=== PATIENT | male | born 1970 | race Caucasian/White ===

== ENCOUNTER 2018-05-20 11:59 | Inpatient (IN) | payer MEDICAID, OTHER ==
--- NOTE | 2018-05-20 12:03 | EDPHY ---
H & P Time Seen by Provider: 05/20/18 12:03 HPI/ROS: CHIEF COMPLAINT: Left ankle injury HISTORY OF PRESENT ILLNESS: Arrives by EMS, slipped on ice on the [employer] path injuring his left ankle. Pain immediately after the fall. No skin laceration. No weakness or numbness in the foot. No other injuries. Is feeling generally well before this happened. REVIEW OF SYSTEMS: Eye: no change in vision ENT: no sore throat Cardiac: no chest pain or syncope Pulmonary: no cough or SOB Abdomen: no vomiting, diarrhea, abdominal pain Musculoskeletal: no back pain Skin: no rash Neuro: no headache Constitutional: no fever : no urinary symptoms A comprehensive 10 point review of systems is otherwise negative aside from elements mentioned in the history of present illness. PAST MEDICAL HISTORY: Negative Social history: Nonsmoker General Appearance: Alert and conversant, cooperative. Eyes: No scleral icterus. ENT, Mouth: Normal mucous membranes. Respiratory: Normal respiratory effort, breath sounds equal, lungs are clear to auscultation. Cardiovascular: Regular rate and rhythm. Gastrointestinal: Abdomen is soft and non tender. Neurological: Alert, face symmetric, normal motor and sensory in extremities. Skin: Warm and dry, no rashes. No laceration on the left leg. Musculoskeletal: Swelling and tenderness left distal tib-fib. No foot tenderness. Normal motor sensory and dorsalis pedis pulse in the left foot. No spinal or clavicular or other extremity tenderness. Pelvis is stable. Psychiatric: Not agitated. Emergency Department course/MDM: 1240: X-rays reviewed with the patient. He has spiral tibia and fibula fracture, closed. Phone consultation with Orthopedics requested. Last had tortilla with butter and a piece of toast with butter and some water at 10:30 a.m. Procedure: Splint placement. A left long leg posterior Ortho Glass splint was applied. After application of the splint I returned and re-examined the patient. The splint was adequately immobilizing the joint and distal to the splint the patient's circulation and sensation was intact. 1310: discussed with Teo: splint, admit, NPO. OR later today. 1352: reviewed xrays in ED with Teo, CT ordered at his request. Constitutional: Initial Vital Signs Temperature (C) 36.3 C 05/20/18 12:02 Heart Rate 58 L 05/20/18 12:02 Respiratory Rate 18 05/20/18 12:02 Blood Pressure 131/87 H 05/20/18 12:02 O2 Sat (%) 93 05/20/18 12:02 O2 Delivery Mode Room Air Allergies/Adverse Reactions: No Known Allergies Allergy (Unverified 05/20/18 12:05) Home Medications: Medication Instructions Recorded Multivitamins [Multivitamin (*)] 1 each PO DAILY 05/20/18 diphenhydrAMINE [Benadryl 25 MG 25 mg PO DAILY PRN 05/20/18 (*)] Medical Decision Making - Diagnostics Imaging Results: Imaging Impressions Ankle X-Ray 05/20/18 12:03 Impression: Complex spiral fractures of the distal tibia and fibula, as above- detailed. Imaging: I viewed and interpreted images myself - Data Points Medications Given: Discontinued Medications Sodium Chloride (Ns) 1,000 mls @ 0 mls/hr IV EDNOW ONE; Wide Open PRN Reason: Protocol Stop: 05/20/18 13:12 Last Admin: 05/20/18 13:15 Dose: 1,000 mls Ondansetron HCl (Zofran) 4 mg IVP EDNOW ONE Stop: 05/20/18 12:13 Last Admin: 05/20/18 12:18 Dose: 4 mg Departure - Departure Disposition: [facility] In[facility] Acute Clinical Impression: Tibia/fibula fracture, shaft Qualifiers: Encounter type: initial encounter Fracture type: closed Laterality: left Qualified Code(s): S82.202A - Unspecified fracture of shaft of left tibia, initial encounter for closed fracture Fracture, fibula closed, shaft Qualifiers: Encounter type: initial encounter Fracture morphology: spiral Fracture alignment: displaced Laterality: left Qualified Code(s): S82.442A - Displaced spiral fracture of shaft of left fibula, initial encounter for closed fracture Condition: Good
[2018-05-20] MEDS ORDERED: ONDANSETRON 4 MG/2 ML VIAL IVP ONE (12:12)
[2018-05-20] MEDS ORDERED: NS 1,000 ML IV ONE (13:11)
[2018-05-20] MEDS ORDERED: LR 1,000 ML IV ONE (16:00)
[2018-05-20] MEDS ORDERED: BUPIVACAINE 0.5% 30 ML SDV ONE (16:16)
[2018-05-20] MEDS ORDERED: ceFAZolin 2 GM/DEXTROSE 100 ML IV ONE (16:24)
--- NOTE | 2018-05-20 16:31 | PDANEPAE ---
ANE Past Medical History - Cardiovascular History Hx Hypertension: No Hx Arrhythmias: No Hx Chest Pain: No Hx Coronary Artery / Peripheral Vascular Disease: No Hx CHF / Valvular Disease: No Hx Palpitations: No - Pulmonary History Hx COPD: No Hx Asthma/Reactive Airway Disease: No Hx Oxygen in Use at Home: No - Endocrine History Hx Diabetes: No - Renal History Hx Renal Disorders: No - Liver History Hx Hepatic Disorders: No ANE Review of Systems Review of systems is: negative Review of Systems: - Exercise capacity Exercise capacity: >=4 METS ANE Patient History - Allergies Allergies/Adverse Reactions: No Known Allergies Allergy (Unverified 05/20/18 12:05) - Home Medications Home medications: home medication list seen and reviewed Home Medications: Multivitamins [Multivitamin (*)] 1 each PO DAILY 05/20/18 [Last Taken Unknown] diphenhydrAMINE [Benadryl 25 MG (*)] 25 mg PO DAILY PRN 05/20/18 [Last Taken Unknown] - NPO status NPO Since - Liquids (Date): 05/20/18 NPO Since - Liquids (Time): 08:00 NPO Since - Solids (Date): 05/20/18 NPO Since - Solids (Time): 10:30 (toast with butter) - Anes Hx Anes Hx: no prior problems (no prior general anesthesia) - Smoking Hx Smoking Status: Never smoked - Family Anes Hx Family Anes Hx: none ANE Labs/Vital Signs - Vital Signs Blood Pressure: 121/82 Heart Rate: 65 Respiratory Rate: 16 O2 Sat (%): 95 Weight: 64.864 kg ANE Physical Exam - Airway Neck exam: FROM Mallampati Score: Class 2 Mouth exam: normal dental/mouth exam - Pulmonary Pulmonary: no respiratory distress - Cardiovascular Cardiovascular: regular rate and rhythym - ASA Status ASA Status: I, E ANE Anesthesia Plan Anesthesia Plan: general endotracheal anesthesia (hx of motion sickness; scopalamine patch ordered)
[2018-05-20] MEDS ORDERED: PROPOFOL 200 MG/20 ML VIAL ONE (16:42)
[2018-05-20] MEDS ORDERED: fentaNYL 100 MCG/2 ML INJ ONE (16:42)
[2018-05-20] MEDS ORDERED: SCOPOLAMINE HYDROBROMIDE 1 MG/3 DAYS PATCH TD SCH (16:45)
[2018-05-20] MEDS ORDERED: LIDOCAINE 2% 5 ML SDV ONE (16:45)
[2018-05-20] MEDS ORDERED: ROCURONIUM 50 MG/5 ML VIAL ONE ×2 (16:48→18:46)
[2018-05-20] MEDS ORDERED: TEMAZEPAM 15 MG CAP PO PRN (16:54)
[2018-05-20] MEDS ORDERED: NALOXONE HCL 0.4 MG/ML INJ IVP PRN ×2 (16:54→17:56)
[2018-05-20] MEDS ORDERED: HYDROCODONE/APAP 5/325 TAB PO PRN (16:54)
[2018-05-20] MEDS ORDERED: morphINE PCA 30 MG/30 ML PCA IV PRN (16:54)
[2018-05-20] MEDS ORDERED: PROMETHAZINE HCL 25 MG/ML INJ IVP PRN ×2 (16:54→17:56)
[2018-05-20] MEDS ORDERED: D5W 1/2 NS W/ 20 KCl/L 1,000 ML IV SCH (17:00)
[2018-05-20] MEDS ORDERED: DEXAMETHASONE 4 MG/ML VIAL ONE ×2 (17:21)
[2018-05-20] MEDS ORDERED: ONDANSETRON 4 MG/2 ML VIAL IVP PRN (17:56)
[2018-05-20] MEDS ORDERED: fentaNYL 100 MCG/2 ML INJ IVP PRN (17:56)
[2018-05-20] MEDS ORDERED: HYDROmorphONE/DILAUDID 2 MG/ML INJ IVP PRN (17:56)
[2018-05-20] MEDS ORDERED: HYDROmorphONE/DILAUDID 2 MG/ML INJ ONE (18:02)
[2018-05-20] MEDS ORDERED: ONDANSETRON 4 MG/2 ML VIAL ONE (19:10)
[2018-05-20] MEDS ORDERED: SUGAMMADEX SODIUM 200 MG/2 ML VIAL IVP ONE (19:27)
--- NOTE | 2018-05-20 19:43 | POSTOPPROG ---
Post Op Note Date of Operation: 05/20/18 Surgeon: Nilson Bruce Anesthesia: GET(General Endotracheal) Pre-op Diagnosis: L distal tib/fib fx Post-op Diagnosis: same Procedure: ORIF L distal tib/fib fx Inf/Abcess present in the surg proc area at time of surgery?: No EBL: Minimal
--- NOTE | 2018-05-20 20:10 | POSTANESTH ---
Post Anesthetic Evaluation Cardiovascular Status: Similar to Pre-Op Cond Respiratory Status: Similar to Pre-op Cond. Level of Consciousness/Mental Status: Alert and Oriented, Mildly Sleepy, Arousable Pain Control: Adequate, Prn Tx Ordered Nausea/Vomiting Control: Adequate, Prn Tx Ordered Complications Possibly Related to Anesthesia: None Noted
[2018-05-20] MEDS: oxyCODONE IR 5 MG TAB PO PRN (22:09)
[2018-05-21] MEDS: ceFAZolin 2 GM/DEXTROSE 100 ML IV SCH ×2 (01:13→09:40)
[2018-05-21] MEDS: oxyCODONE IR 5 MG TAB PO PRN ×3 (01:28→08:44)
--- NOTE | 2018-05-21 03:57 | GCON ---
[f rep st] CONSULTATION Date: 05/20/18 CONSULTATION/H AND P REASON FOR CONSULTATION: Left lower leg injury. HISTORY OF PRESENT ILLNESS: Patient is a 47-year-old who sustained a fall on the ice resulting in left lower leg pain and inability to ambulate. He was brought to the emergency room for evaluation and found to have a distal tibia and fibula fracture. He denies any previous problems or injuries relative to his left lower leg. PAST MEDICAL HISTORY: Unremarkable. MEDICATIONS: He takes no medicine. ALLERGIES: Lists no drug allergies. SOCIAL HISTORY: Negative for tobacco use. REVIEW OF SYSTEMS: Noncontributory. PHYSICAL EXAMINATION: GENERAL: He is alert and oriented x3, in mild distress secondary to his lower leg injury. HEENT: Head is normocephalic. Pupils equal , round, reactive to light. Extraocular eye movements intact. NECK: Supple. No JVD or lymphadenopathy. CHEST: Clear to auscultation. HEART: Regular rate and rhythm. No murmurs or gallops. ABDOMEN: Soft, nontender, nondistended. GENITAL, RECTAL, AND BREASTS: Deferred. EXTREMITIES: Reveal mild diffuse swelling at his left lower leg with diffuse tenderness along his distal tibia and fibula. His tibial and peroneal nerves are intact to motor and sensory exam. He has palpable dorsalis pedis pulses. IMAGING: Radiographs show evidence of intra-articular distal tibia and fibula fracture with metadiaphyseal extension. ASSESSMENT: Left distal tibia and fibula fractures. PLAN: It was recommended that operative treatment consisting of open reduction , internal fixation (versus possible spanning external fixation) be pursued. This will be performed pending the patient's n.p.o. status and OR availability. /[id number]/MODL MTDD
--- NOTE | 2018-05-21 05:53 | SOAPPROG ---
SOAP Progress Note Assessment/Plan: Assessment: S/P ORIF L Distal tib/fib Appropriate amount of pain Rd diet +U/O Splint intact, no D/C Toes with + sensation, good cap refill No sign compartment syndrome Plan: OOB/PT Poss D/C 05/21/18 05:51 Objective: Vital Signs Temp Pulse Resp BP Pulse Ox 36.7 C 62 18 118/77 98 05/21/18 05:19 05/21/18 05:19 05/21/18 05:19 05/21/18 05:19 05/21/18 05:19 05/19/18 05/20/18 05/21/18 05:59 05:59 05:59 Intake Total 1720 Output Total 870 Balance 850 ICD10 Worksheet Patient Problems: Problems Problem Status Onset Fracture, fibula closed, shaft Acute Tibia/fibula fracture, shaft Acute
[2018-05-21] MEDS ORDERED: MULTIVITAMINS 1 EACH TAB PO SCH (09:00)
--- NOTE | 2018-05-21 09:54 | PDMN ---
Medical Necessity Medical necessity: Pt meets inpt criteria per MD order and [id number], Tibia/ Fibula Shaft Fracture, Closed or Open Reduction, A-2 days. 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
[2018-05-21 11:03] VITALS: BP 115/70
--- NOTE | 2018-05-21 13:19 | GOP ---
[f rep st] OPERATIVE REPORT DATE OF OPERATION: 05/20/2018 SURGEON: Nilson Bruce MD ANESTHESIA: General. PREOPERATIVE DIAGNOSIS: Left intra-articular distal tibia and fibula fracture. POSTOPERATIVE DIAGNOSIS: Left intra-articular distal tibia and fibula fracture. PROCEDURE PERFORMED: 1. Open reduction, internal fixation, left intra-articular tibia and fibula fractures. 2. Intraoperative use of fluoroscopy. FINDINGS: ESTIMATED BLOOD LOSS: Minimal. INDICATIONS: Patient is a 47-year-old who sustained a fall on ice resulting in displaced intra-artic ular distal tibia and fibula fractures. Based on the displaced intra-articular nature of his injurie s, it was recommended that operative treatment consisting of open reduction, internal fixation be pur sued. The patient acknowledged he understood the potential risks of the operation including, but not limited to bleeding, infection, neurovascular damage, loss of limb or limb function, malunion, nonun ion, need for hardware removal, pain or functional limitations despite operative treatment and anesth etic risks. He acknowledged he understood the potential risks of the planned procedure, postoperativ e plan well and had all questions answered prior to surgery. He gave his consent for the operative p rocedure. DESCRIPTION OF PROCEDURE: The patient was brought to the operating after IV antibiotics were adminis tered. He was placed in supine position where general anesthetic was administered. A tourniquet was placed on his left thigh, and the patient was transferred to a right lateral decubitus position on t he operating table with beanbag support, axillary roll, and padding of all bony prominences. The lef t lower extremity was prepped and draped in standard sterile fashion. After marking the incisions, A ce wrap exsanguination, tourniquet was inflated to 250. A longitudinal incision was made posterior t o the distal fibula. Skin and subcutaneous tissue were sharply incised. Sharp dissection was trent d anterior to the peroneal tendon, exposing the posterior border of the fibula. Based on the nature of the fracture pattern, a posterior "antiglide" fixation was chosen. A 10 hole 1/3 tubular plate wa s malleted flat at its distal aspect. Proximal to the plane of the fracture, 3.5 mm bicortical screw was placed through the plate in a posterior to anterior direction. As the screw was tightened, the fracture reduction was fine tuned with a dental pick and 2-point reduction clamp. An additional 3.5 mm bicortical screw was placed slightly closer to the fracture plane further stabilizing the fixation . With the fracture held in an anatomically reduced position, 2.7 mm cortical screws placed in lag f ashion in posterior to anterior direction across fracture with an additional 2.[address] aced in the most distal hole in the plate. The most proximal screw was filled with 3.5 mm bicortical screw. Fluoroscopic views confirmed anatomic reduction and favorable hardware placement. Attention was then directed toward the posterior distal tibial intra-articular segment. Through the same incision, dissection was carried in the interval between the peroneal and flexor hallucis longus tendons. The deep posterior compartment fascia was initially opened and dissection was carried down to the posterior tibia. The fracture plane was identified. A 1.6 mm Antonio wire was placed acro ss the fracture, provisionally stabilizing it. With the fracture held in reduced position, 2.7 mm co rtical screw was placed in lag fashion in a posterior to anterior direction. Fluoroscopic views conf irmed favorable reduction and hardware placement. Attention was directed towards closure. The fascia layer overlying the peroneal tendon was closed wi th 2-0 Vicryl suture in an interrupted fashion, subcutaneous tissue closed with 3-0 Vicryl suture in an interrupted fashion and skin closed with 4-0 nylon interrupted sutures. The beanbag was deflated and the patient allowed to come into a supine position. Attention was directed toward the distal tibia fracture. An anterolateral approach was utilized. Sk in and subcutaneous tissue were sharply incised. Care was taken to avoid damage to the superficial p eroneal nerve. Extensor retinaculum was incised. Dissection was carried lateral to the extensor dig itorum communis, exposing the distal aspect of the tibia. A 2-point reduction clamp was utilized to reduce the oblique fracture plane. A 3.5 mm cortical screw was placed through a stab incision in an anteromedial to posterolateral direction across the fracture providing provisional stability. An ant erolateral distal tibial plate (Synthes) was slid along the subcutaneous border of the tibia. Distal ly, an initial 3.5 mm bicortical screw was placed through the plate stabilizing it to the distal segm ent. Fluoroscopic views confirmed that the plate was in adequate position on the proximal aspect of the tibia. Multiple additional 3.5 mm cortical locking and nonlocking screws were placed distally. Through the incision, a 3.5 mm bicortical screw was placed in the lateral to medial direction proxima l to the fracture plane. Separate incisions were then made along the lateral aspect of the lower leg more proximally to enable screw placement in the most proximal screw and then 1 in the intermediary screw hole. Dissection was carried down to the plate with fine-tipped hemostats protecting the peron eal nerve. After each of the screws were placed, fluoroscopic views confirmed favorable reduction an d hardware placement. Attention was directed towards closure. Subcutaneous tissue was closed with 3-0 Vicryl suture in int errupted fashion. The skin distally was closed with 4-0 nylon interrupted vertical mattress sutures and skin bernabe proximally. The wounds were dressed with sterile Adaptic, 4 x 4, and Webril, and mónica jaquez was placed in a below-knee splint. The patient tolerated the procedure well, was taken to the yemi very room, extubated in stable condition postoperatively. All sponge, needle and instrument counts w ere reported as being correct. DRAINS: None. COMPLICATIONS: None. PLAN: The patient will be admitted for medical management, pain management and gait training. He wi ll be nonweightbearing on his operative extremity. /[id number]/MODL
--- NOTE | 2018-05-21 13:24 | ASMTLACE ---
ELDERE Length of stay for Answers: 2 days current admission Acuity / Level of Answers: Yes Care: Did the patient have an inpatient admission? # of Emergency department Answers: 1-2 visits in the last 6 months Score: 6 Date Signed: 05/21/2018 01:24 PM Electronically Signed By:NEEL Fine
--- NOTE | 2018-05-21 13:29 | ASMTCMCOM ---
CM Note CM Note Notes: Pt had surgery after a fall on ice. PT rec home/outpatient. [facility] [employer] staff met with pt, they were able to find Medicaid coverage State ID [id number]. Pt has a ride to get a walker he found from the loan closet and ride home. No CM d/c needs identified. Date Signed: 05/21/2018 01:28 PM Electronically Signed By:NEEL Fine
[2018-05-23] MEDS ORDERED: PATCH REMOVAL 1 EA PATCH TD SCH (16:36)
== END 2018-05-21 12:46 | disposition home or self-care (01) | DRG 313 ==
LOC: EDUNIT# → EDBD → F3N 14:48 → OBSVTOIN 16:58
PROVIDERS: ADMIT Orthopaedic Surgery Foot and Ankle Surgery; ATTEND Orthopaedic Surgery Foot and Ankle Surgery
DX: S82.252A Displaced comminuted fracture of shaft of left tibia, initial encounter for closed fracture (principal); S82.55XA Nondisplaced fracture of medial malleolus of left tibia, initial encounter for closed fracture; S82.442A Displaced spiral fracture of shaft of left fibula, initial encounter for closed fracture; W00.0XXA Fall on same level due to ice and snow, initial encounter; Y92.480 Sidewalk as the place of occurrence of the external cause
CPT/HCPCS: 96374; 97116-GP; 97161-GP; 97165-GO; C1713; J0690; J1100; J1170; J2270; J2405; J2704; J3010

== ENCOUNTER 2018-05-21 23:35 | Observation (INO) | payer MEDICAID ==
[2018-05-21] MEDS ORDERED: HYDROmorphONE/DILAUDID 1 MG/ML INJ IVP ONE (23:51)
--- NOTE | 2018-05-21 23:52 | EDPHY ---
H & P Stated Complaint: UNCONTROLLED PAIN/ S/P L TIB/FIB FX REPAIR Time Seen by Provider: 05/21/18 23:43 HPI/ROS: Chief Complaint: Leg pain status post fracture repair HPI: 47-year-old male had an operative repair of a left tib-fib fracture yesterday by Dr. Rob paredes. He was discharged from the hospital a 1:00 a.m. This afternoon. Over the course the evening he has had progression of worsening severe pain in his leg. He has taken 2 Percocet without any relief. Pain is currently 10/10. He has been keeping it elevated. ROS: 10 systems were reviewed and were negative except those elements noted in the HPI. PMH: Denies Social History: No smoking, no alcohol, no recreational drug use Family History: non-contributory Physical Exam: Gen: Awake, Alert, No Distress HEENT: Nose: no rhinorrhea Eyes: PERRLA, EOMI Mouth: Moist mucosa Neck: Supple, no JVD Chest: nontender, lungs clear to auscultation Heart: S1, S2 normal, no murmur Abd: Soft, non-tender, no guarding Back: no CVA tenderness, no midline tenderness Ext: Left leg is in a splint. Splint is been taken down. Incisions are intact. There is diffuse ecchymosis. There is moderate swelling. Calf is soft. He he has 2+ dorsalis pedis pulses. Sensations intact in all dermatomes. Capillary refill less than 3 sec. Skin: no rash Neuro: CN II-XII intact, Sensation grossly intact, Strength 5/5 in bilateral upper and lower extremities - Personal History Current Tetanus Diphtheria and Acellular Pertussis (TDAP): Unsure - Medical/Surgical History Hx Asthma: No Hx Chronic Respiratory Disease: No Hx Diabetes: No Hx Cardiac Disease: No Hx Renal Disease: No Hx Cirrhosis: No Hx Alcoholism: No Hx HIV/AIDS: No Hx Splenectomy or Spleen Trauma: No Other PMH: none - Social History Smoking Status: Never smoked Constitutional: Initial Vital Signs Temperature (C) 36.9 C 05/21/18 23:43 Heart Rate 76 05/21/18 23:43 Respiratory Rate 16 05/21/18 23:43 Blood Pressure 155/88 H 05/21/18 23:43 O2 Sat (%) 95 05/21/18 23:43 O2 Delivery Mode Room Air Allergies/Adverse Reactions: No Known Allergies Allergy (Unverified 05/20/18 12:05) Home Medications: Medication Instructions Recorded Multivitamins [Multivitamin (*)] 1 each PO DAILY 05/20/18 diphenhydrAMINE [Benadryl 25 MG 25 mg PO DAILY PRN 05/20/18 (*)] Medical Decision Making ED Course/Re-evaluation: Patient with significant postoperative pain despite 2 Percocet at home. He has ecchymosis and swelling consistent with fracture and repair. No findings suggestive of infection. Compartments are soft. Perfusion is intact. Normal pulses. Normal sensation. I have discussed with JESUS Sherman on for Dr. Rob Mendez. She is requesting that the patient be admitted to the hospitalist service for pain control. They will consult in the morning. Discussed with Dr. Don, hospitalist. She will admit to her service for further care. Patient has been Re splinted in a posterior splint. Patient has good perfusion. Patient's pain controlled with Dilaudid. - Data Points Laboratory Results: 05/21/18 05/21/18 23:55 23:55 WBC Pending RBC Pending Hgb Pending Hct Pending MCV Pending MCH Pending MCHC Pending RDW Pending Plt Count Pending MPV Pending Neut % (Auto) Pending Lymph % (Auto) Pending Rains % (Auto) Pending Eos % (Auto) Pending Baso % (Auto) Pending Nucleat RBC Rel Count Pending Absolute Neuts (auto) Pending Absolute Lymphs (auto) Pending Absolute Monos (auto) Pending Absolute Eos (auto) Pending Absolute Basos (auto) Pending Absolute Nucleated RBC Pending Immature Gran % Pending Immature Gran # Pending Sodium Pending Potassium Pending Chloride Pending Carbon Dioxide Pending Anion Gap Pending BUN Pending Creatinine Pending Estimated GFR Pending Glucose Pending Calcium Pending Medications Given: Discontinued Medications Hydromorphone HCl (Dilaudid) 1 mg IVP EDNOW ONE Stop: 05/21/18 23:52 Last Admin: 05/22/18 00:02 Dose: 1 mg Departure - Departure Disposition: [facility] Inpatient Acute Clinical Impression: Tibia/fibula fracture, shaft Condition: Fair Referrals: NONE *PRIMARY CARE P,. [Primary Care Provider] - As per Instructions
[2018-05-22 00:22] LABS: PLATELET COUNT 280 10^3/uL (150-400)
[2018-05-22] MEDS ORDERED: LORazepam 0.5 MG TAB PO PRN (01:33)
[2018-05-22] MEDS ORDERED: ONDANSETRON DISINTEGRATING 4 MG TAB PO PRN (01:33)
[2018-05-22] MEDS ORDERED: ACETAMINOPHEN 325 MG TAB PO PRN (01:33)
[2018-05-22] MEDS ORDERED: ONDANSETRON 4 MG/2 ML VIAL IVP PRN (01:33)
[2018-05-22] MEDS ORDERED: NS 1,000 ML IV SCH (01:45)
[2018-05-22] MEDS: CYCLOBENZAPRINE 10 MG TAB PO PRN ×3 (01:53→13:17)
[2018-05-22] MEDS: OXYCODONE/APAP 5/325 TAB PO PRN ×4 (01:53→13:17)
--- NOTE | 2018-05-22 01:58 | PDGENHP ---
History and Physical - Chief Complaint Intractable left leg pain - History of Present Illness Source-patient provides history is fair historian. EMR was reviewed and case discussed with ED provider. HPI - 39-year-old gentleman with no significant past medical history was discharged earlier to the day status post a ORIF left tib-fib with Dr. Bruce. He was discharged approximately 1:00 p.m. With a prescription for Percocet. Patient went home and reports he took 2 tabs of Percocet however his pain escalated to the point where he felt he needed to return back to the emergency department. He states he has been nonweightbearing and elevating his leg. He denies any fevers or chills. No nausea or vomiting but patient has had poor oral intake since discharge due to pain. Denies any numbness or tingling. History Information - Allergies/Home Medication List Allergies/Adverse Reactions: No Known Allergies Allergy (Unverified 05/20/18 12:05) Home Medications: Multivitamins [Multivitamin (*)] 1 each PO DAILY 05/20/18 [Last Taken Unknown] diphenhydrAMINE [Benadryl 25 MG (*)] 25 mg PO DAILY PRN 05/20/18 [Last Taken Unknown] I have personally reviewed and updated: family history, medical history, social history, surgical history - Past Medical History no pertinent PMH - Surgical History Additional surgical history: Left leg ORIF 05/20/18 - Family History Positive for: non-pertinent - Social History Smoking Status: Never smoked Alcohol Use: None Drug Use: None Review of Systems Review of Systems: ROS: 10pt was reviewed & negative except for what was stated in HPI & below Physical Exam Physical Exam: Selected Entries 05/21/18 23:43 Blood Pressure Automatic Method Heart Rate 76 Respiratory 16 Rate O2 Sat (%) 95 Temperature (C) 36.9 C Blood Pressure 155/88 H Mean Arterial 110 H Pressure (MAP) O2 Delivery Room Air Mode Temperature Oral Source Temp Pulse Resp BP Pulse Ox 36.8 C 65 16 119/77 91 L 05/22/18 01:34 05/22/18 01:34 05/22/18 01:34 05/22/18 01:34 05/22/18 01:34 O2 (L/minute) 2 Constitutional: no apparent distress, chronically ill appearing, other ( Slightly distant shuffled. Fatigue. Patient appears dehydrated. He is slightly somnolent but wakes and answers questions appropriately.) Eyes: PERRL (Decreased reactivity light bilaterally but symmetric.), anicteric sclera, EOMI, No scleral injection Ears, Nose, Mouth, Throat: poor dentition (Fair condition), dry mucous membranes Cardiovascular: regular rate and rhythym, no murmur, rub, or gallop, No edema Peripheral Pulses: 2+: dorsalis-pedis (R), dorsalis-pedis (L) Respiratory: no respiratory distress, no rales or rhonchi, clear to auscultation , reduced air movement (Poor inspiratory effort. Patient is slightly somnolent. ), No expiratory wheeze, No inspiratory crackles Gastrointestinal: normoactive bowel sounds, soft, non-tender abdomen, no palpable masses, No distension Genitourinary: no bladder tenderness, No jhaveri in urethra Skin: warm, normal color, no rashes or abrasions, other (Incision sites dry clean intact. No drainage.) Musculoskeletal: generalized weakness, other (Patient moves all other extremities besides left. He is able to move his toes on the left lower extremity.) Neurologic: AAOx3, other (Grossly nonfocal.), No facial droop Psychiatric: flat affect, other (Patient answers questions appropriately but he is a little somnolent. He wakes easily to name affect otherwise flat. No acute distress.) Lab Data & Imaging Review 05/21/18 23:55 05/21/18 23:55 WBC 11.30 10^3/uL (3.80-9.50) H 05/21/18 23:55 RBC 4.13 10^6/uL (4.40-6.38) L 05/21/18 23:55 Hgb 13.0 g/dL (13.7-17.5) L 05/21/18 23:55 Hct 37.0 % (40.0-51.0) L 05/21/18 23:55 MCV 89.6 fL (81.5-99.8) 05/21/18 23:55 MCH 31.5 pg (27.9-34.1) 05/21/18 23:55 MCHC 35.1 g/dL (32.4-36.7) 05/21/18 23:55 RDW 13.8 % (11.5-15.2) 05/21/18 23:55 Plt Count 280 10^3/uL (150-400) 05/21/18 23:55 MPV 10.1 fL (8.7-11.7) 05/21/18 23:55 Neut % (Auto) Not Reported 05/21/18 23:55 Lymph % (Auto) Not Reported 05/21/18 23:55 [place] % (Auto) Not Reported 05/21/18 23:55 Eos % (Auto) Not Reported 05/21/18 23:55 Baso % (Auto) Not Reported 05/21/18 23:55 Nucleat RBC Rel Count Not Reported 05/21/18 23:55 Absolute Neuts (auto) Not Reported 05/21/18 23:55 Absolute Lymphs (auto) Not Reported 05/21/18 23:55 Absolute Monos (auto) Not Reported 05/21/18 23:55 Absolute Eos (auto) Not Reported 05/21/18 23:55 Absolute Basos (auto) Not Reported 05/21/18 23:55 Absolute Nucleated RBC Not Reported 05/21/18 23:55 Immature Gran % Not Reported 05/21/18 23:55 Seg Neutrophils % 68.0 % 05/21/18 23:55 Band Neutrophils % 0.0 % 05/21/18 23:55 Lymphocytes % 22.0 % 05/21/18 23:55 Monocytes % 10.0 % 05/21/18 23:55 Eosinophils % 0.0 % 05/21/18 23:55 Basophils % 0.0 % 05/21/18 23:55 Metamyelocytes % 0.0 % 05/21/18 23:55 Myelocytes % 0.0 % 05/21/18 23:55 Promyelocytes % 0.0 % 05/21/18 23:55 Blast Cells % 0.0 % 05/21/18 23:55 Immature Gran # Not Reported 05/21/18 23:55 Absolute Seg Neuts 7.68 10^3/uL (1.70-6.50) H 05/21/18 23:55 Absolute Band Neuts 0.00 10^3/uL (0.00-0.70) 05/21/18 23:55 Absolute Lymphocytes 2.49 10^3/uL (1.00-3.00) 05/21/18 23:55 Absolute Monocytes 1.13 10^3/uL (0.30-0.80) H 05/21/18 23:55 Absolute Eosinophils 0.00 10^3/uL (0.03-0.40) L 05/21/18 23:55 Absolute Basophils 0.00 10^3/uL (0.02-0.10) L 05/21/18 23:55 Absolute Metamyelocyte 0.00 10^3/mL (0.00-0.00) 05/21/18 23:55 Absolute Myelocytes 0.00 10^3/mL (0.00-0.00) 05/21/18 23:55 Absolute Promyelocytes 0.00 10^3/uL (0.00-0.00) 05/21/18 23:55 Absolute Plasma Cells 0.00 10^3/uL (0.00-0.00) 05/21/18 23:55 Nucleated RBCs 0 /100 WBC (0-0) 05/21/18 23:55 RBC/WBC/PLT Morphology NORMAL (NORMAL) 05/21/18 23:55 Absolute Blast Cells 0.00 10^3/uL (0.00-0.00) 05/21/18 23:55 Plasma Cells % 0.0 % 05/21/18 23:55 Platelet Estimate ADEQUATE (ADEQ) 05/21/18 23:55 Sodium 136 mEq/L (135-145) 05/21/18 23:55 Potassium 4.1 mEq/L (3.5-5.2) 05/21/18 23:55 Chloride 105 mEq/L (97-110) 05/21/18 23:55 Carbon Dioxide 26 mEq/l (22-31) 05/21/18 23:55 Anion Gap 5 mEq/L (6-14) L 05/21/18 23:55 BUN 13 mg/dL (7-23) 05/21/18 23:55 Creatinine 0.8 mg/dL (0.7-1.3) 05/21/18 23:55 Estimated GFR > 60 05/21/18 23:55 Glucose 113 mg/dL (70-100) H 05/21/18 23:55 Calcium 8.8 mg/dL (8.5-10.4) 05/21/18 23:55 Assessment & Plan Assessment: 47-year-old male otherwise healthy POD# #Intractable postop pain left leg - patient received a dose of Dilaudid in the emergency department with some improvement in his pain. Will plan to continue Percocet in addition add Flexeril p.r.n.. Continue elevate leg. Ice p.r.n.. Patient's splint is being replaced. #Tibia/fibula fracture, shaft (Acute) - postop day 2. ortho to see in the AM. # anemia - no baseline labs available. likely 2/2 blood loss. # leukocytosis - likely reactive in setting of recent surgery and increased pain. Patient is afebrile. Wounds appear dry clean intact. No evidence of infectious process. FEN - IV fluids overnight. Patient does appear dehydrated. Electrolytes adequate. Advance diet as tolerated. PPX-SCDs. Holding anticoagulation at this time pending ortho eval but anticipate short hospital stay and early discharge. Cor status-full Disposition-patient admitted observation status on the [facility] floor for continued pain management
[2018-05-22] MEDS ORDERED: HYDROmorphONE/DILAUDID 2 MG/ML INJ IVP PRN (02:13)
[2018-05-22] MEDS ORDERED: IBUPROFEN 200 MG TAB PO PRN (08:12)
--- NOTE | 2018-05-22 09:35 | SOAPPROG ---
SOAP Progress Note Assessment/Plan: 47 yo male s/p left tibia/fibula fracture ORIF by dr. negron discharged on but readmitted 05/21/18 pm for intractable pain, on hospitalist service, POD #2 , pain control continues to be difficult per patient. patiente reports pain control difficult, pain of 7/10 but patient dosing off/on during interview/ physical exam -patient on hospitalist service, management per primary -for pain management continue hospitalist recommendations of percocet prn and flexeril, may consider adding IBUPROFEN -NWB RLE -PT/OT -plan for dispo once patient tolerated PO pain meds with orthopedic follow up as out patient. Subjective: grey reports the pain is currently 7/10 in his left leg where he has the tibia /fibula fracture s/p orif by dr. negron, other than the pain, he denies any issues over night, reports no fevers/chills, denies cp/sob, denies difficulty breathing. reports pain is 7/10 at its best, any thing makes it increase, the "only thing that worked was the shot in the ED." voiding freely, passing gas, but no BM yet. denies numbness/tingling Objective: LLE: splint c/d/i, no signs of breakdown or damage, grossly nvid w/ brisk cap refill, full digital rom Vital Signs Temp Pulse Resp BP Pulse Ox 36.8 C 65 16 114/72 91 L 05/22/18 08:04 05/22/18 08:04 05/22/18 08:04 05/22/18 08:04 05/22/18 08:04 05/21/18 05/22/18 05/23/18 05:59 05:59 05:59 Intake Total 1100 Output Total 350 Balance 750 ICD10 Worksheet Patient Problems: Problems Problem Status Onset Tibia/fibula fracture, shaft Acute Fracture, fibula closed, shaft Acute
[2018-05-22 12:25] VITALS: BP 130/82
--- NOTE | 2018-05-22 13:18 | ASMTCMCOM ---
CM Note CM Note Notes: Pt had a tib/fib fracture operated on by Dr Bruce yesterday and was dc'd home. Due to severe pain, he returned to the hospital. His splint was redone and he will dc back home today. CM available for any changes. DC Plan: Independent Date Signed: 05/22/2018 01:17 PM Electronically Signed By:Heather Pritchard RN
--- NOTE | 2018-05-22 13:41 | HOSPPROG ---
Hospitalist Progress Note Assessment/Plan: 47 yo male s/p left tibia/fibula fracture ORIF by Dr. Gabriel. Patient was discharged on 05/21/18 but readmitted 05/21/18 pm for intractable pain. #Intractable postop pain left leg -better w Flexeril, ibuprofen and Percocet (he can take the oxy IR prn as needed for breakthrough pain) -will ask PT to see to be sure he is able to ambulate and return home #Tibia/fibula fracture, shaft (Acute) - postop day 2. -s/p ORIF # anemia - no baseline labs available. likely 2/2 blood loss. # leukocytosis - likely reactive in setting of recent surgery and increased pain. #plan: dc home w f/u w Dr Bruce Subjective: Seth said pain is well controlled. Objective: Vital Signs Temp Pulse Resp BP Pulse Ox 37.0 C 66 16 130/82 H 94 05/22/18 12:24 05/22/18 12:24 05/22/18 12:24 05/22/18 12:24 05/22/18 12:24 05/21/18 05/22/18 05/23/18 05:59 05:59 05:59 Intake Total 1100 Output Total 600 Balance 500 - Physical Exam Constitutional: no apparent distress, appears nourished, not in pain Eyes: PERRL Ears, Nose, Mouth, Throat: hearing normal Respiratory: no respiratory distress Skin: warm Neurologic: AAOx3 Psychiatric: interacting appropriately ICD10 Worksheet Patient Problems: Problems Problem Status Onset Tibia/fibula fracture, shaft Acute Fracture, fibula closed, shaft Acute
[2018-05-22] MEDS ORDERED: IBUPROFEN 200 MG TAB PO SCH (16:00)
--- NOTE | 2018-05-23 05:00 | GDS ---
[f rep st] DISCHARGE SUMMARY DISCHARGE DIAGNOSES: 1. Intractable postop pain to his left lower extremity. 2. Tibia-fibula fracture, status post open reduction and internal fixation. 3. Anemia. 4. Leukocytosis. HISTORY OF PRESENT ILLNESS: Briefly, Seth Jacobson is a 47-year-old male, who is status post a left t ibia-fibula fracture and had ORIF by Dr. Bruce. He was discharged on May 21, but readmitted for intractable pain. Today, he has been treated with Percocet as well as Flexeril and ibuprofen with g ood relief. He will be discharged home and follow up with Dr. Bruce in the outpatient setting. HOSPITAL COURSE: 1. Intractable postop pain. Pain was well managed during my interview. 2. Tib-fib fracture, postop day #2 status post ORIF. Further followup with Dr. Bruce. 3. Anemia, likely secondary to blood loss. 4. Leukocytosis, likely reactive in the setting of recent surgery. DISCHARGE CONDITION: Stable. Blood pressure is 130/82, heart rate is 66, respiratory rate is 16, O2 sats are 94%. Temperature is 37 degrees Celsius. MEDICATIONS AT DISCHARGE: Please see the EMR. DISCHARGE INSTRUCTIONS: 1. Nonweightbearing to the left lower extremity. 2. Take Percocet 1-2 tabs every 4-6 hours as needed for pain. Do not wait until his pain is out of control. Take the Oxy IR if this does not control his pain. 3. Note that Percocet and OxyContin can cause respiratory depression, so to take the smallest dose t o help with the pain. 4. He will get a prescription for Flexeril. This will help with the spasms. To be aware that this also could make his gait somewhat unsteady. 5. Take scheduled ibuprofen for the next 5 days and then as needed only. 6. Take a stool softener daily while on the pain medications. 7. Do not drink or drive while on the pain medications. 8. Call Dr. Bruce's office for followup appointment in the next 1-2 weeks. /[id number]/MODL
== END 2018-05-22 16:21 | disposition home or self-care (01) ==
LOC: EDUNIT# → F3N 05-22 01:34
PROVIDERS: ADMIT Family Medicine; ATTEND Internal Medicine
PROC: 2W3QX1Z Immobilization of Right Lower Leg using Splint (ICD-10-PCS; principal; 2018-05-22)
DX: G89.18 Other acute postprocedural pain (principal); S82.441A Displaced spiral fracture of shaft of right fibula, initial encounter for closed fracture; S82.241A Displaced spiral fracture of shaft of right tibia, initial encounter for closed fracture; W00.0XXA Fall on same level due to ice and snow, initial encounter; D50.8 Other iron deficiency anemias
CPT/HCPCS: 96374; J1170; J2270